=== PATIENT | male | born 1960 | race Caucasian/White ===

== ENCOUNTER → 2019-10-04 10:01 | Outpatient (CLI) | payer BC, SELFPAY ==
[2019-10-04 12:03] LABS: Alanine Aminotransferase 37 IU/L (<50); Albumin 4.4 g/dL (3.5-5.0); Albumin Globulin Ratio 1.4 (1.0-2.8); Alkaline Phosphatase 65 U/L (38-126); Aspartate Aminotransferase 33 IU/L (17-59); BUN Creatinine Ratio 13.6 (6-22); Blood Urea Nitrogen 15 mg/dL (9-20); Calcium 9.5 mg/dL (8.4-10.2); Carbon Dioxide 30 mmol/L (22-32); Chloride 102 mmol/L (98-107); Cholesterol 232 mg/dL (140-199); Estimated Glomerular Filt Rate > 60.0 mL/min (>60); Globulin 3.1 g/dL (1.7-4.1); Glucose 107 mg/dL (80-110); HDL Cholesterol 30 mg/dL (40-60); HEMOLYSIS < 15 (0-50); LDL Cholesterol Calculated 153 mg/dL (<100); Potassium 4.1 mmol/L (3.4-5.1); Sodium 140 mmol/L (137-145); Total Protein 7.5 g/dL (6.3-8.2); Triglycerides 244 mg/dL (35-150)
== END ==
PROVIDERS: PCP Family Medicine; Referring Provider Family Medicine; Visit Provider Family Medicine
DX: I10 Essential (primary) hypertension (principal)
CPT/HCPCS: 36415; 80053; 80061

== ENCOUNTER → 2020-06-12 12:33 | Outpatient (CLI) | payer BC, SELFPAY ==
[2020-06-12 13:25] LABS: Hemoglobin A1C% w Est Avg Glu 6.3 % (4.0-6.0)
[2020-06-12 14:21] LABS: BUN Creatinine Ratio 17.3 (6-22); Blood Urea Nitrogen 18 mg/dL (9-20); Calcium 9.3 mg/dL (8.4-10.2); Carbon Dioxide 32 mmol/L (22-32); Chloride 102 mmol/L (98-107); Estimated Glomerular Filt Rate > 60.0 mL/min (>60); Glucose 107 mg/dL (80-110); HEMOLYSIS < 15 (0-50); Potassium 4.2 mmol/L (3.4-5.1); Sodium 139 mmol/L (137-145)
== END ==
PROVIDERS: PCP Family Medicine; Referring Provider Family Medicine; Visit Provider Family Medicine
DX: E66.9 Obesity, unspecified (principal); E78.5 Hyperlipidemia, unspecified; I10 Essential (primary) hypertension; R73.03 Prediabetes
CPT/HCPCS: 36415; 80048; 83036

== ENCOUNTER → 2020-07-26 08:44 | Outpatient (CLI) | payer BC, SELFPAY ==
[2020-07-26 10:21] LABS: Glucose Tol Interpretation INTERPRETATION
[2020-07-26 11:26] LABS: Glucose 1 Hour 172 mg/dL (70-170)
[2020-07-26 11:26] LABS: Glucose Fasting 104 mg/dL (80-110)
[2020-07-26 12:35] LABS: Glucose 2 Hour 139 mg/dL (70-140)
== END ==
PROVIDERS: PCP Family Medicine; Referring Provider Family Medicine; Visit Provider Family Medicine
DX: E66.9 Obesity, unspecified (principal); R73.03 Prediabetes
CPT/HCPCS: 36415; 82951; 82952

== ENCOUNTER → 2020-11-23 07:54 | Outpatient (CLI) | payer BC, SELFPAY ==
[2020-11-23 09:40] LABS: Alanine Aminotransferase 34 IU/L (<50); Albumin 4.3 g/dL (3.5-5.0); Albumin Globulin Ratio 1.7 (1.0-2.8); Alkaline Phosphatase 56 U/L (38-126); Aspartate Aminotransferase 29 IU/L (17-59); BUN Creatinine Ratio 14.6 (6-22); Bilirubin Total 0.7 mg/dL (0.2-1.3); Blood Urea Nitrogen 14 mg/dL (9-20); Calcium 9.4 mg/dL (8.4-10.2); Carbon Dioxide 29 mmol/L (22-32); Chloride 102 mmol/L (98-107); Cholesterol 126 mg/dL (140-199); Estimated Glomerular Filt Rate > 60.0 mL/min (>60); Globulin 2.5 g/dL (1.7-4.1); Glucose 112 mg/dL (80-110); HDL Cholesterol 41 mg/dL (40-60); HEMOLYSIS < 15 (0-50); LDL Cholesterol Calculated 60 mg/dL (<100); Potassium 3.9 mmol/L (3.4-5.1); Sodium 138 mmol/L (137-145); Total Protein 6.8 g/dL (6.3-8.2); Triglycerides 126 mg/dL (35-150)
== END ==
PROVIDERS: PCP Family Medicine; Referring Provider Family Medicine; Visit Provider Family Medicine
DX: E78.2 Mixed hyperlipidemia (principal); I10 Essential (primary) hypertension
CPT/HCPCS: 36415; 80053; 80061

== ENCOUNTER → 2021-05-11 08:40 | Outpatient (CLI) | payer BC, SELFPAY ==
[2021-05-11 09:41] LABS: Hemoglobin A1C% w Est Avg Glu 6.2 % (4.0-6.0)
[2021-05-11 10:18] LABS: Alanine Aminotransferase 41 IU/L (<50); Albumin 4.2 g/dL (3.5-5.0); Albumin Globulin Ratio 1.8 (1.0-2.8); Alkaline Phosphatase 52 U/L (38-126); Aspartate Aminotransferase 30 IU/L (17-59); BUN Creatinine Ratio 14.6 (6-22); Bilirubin Total 0.3 mg/dL (0.2-1.3); Blood Urea Nitrogen 14 mg/dL (9-20); Calcium 9.3 mg/dL (8.4-10.2); Carbon Dioxide 31 mmol/L (22-32); Chloride 102 mmol/L (98-107); Cholesterol 116 mg/dL (140-199); Estimated Glomerular Filt Rate > 60.0 mL/min (>60); Globulin 2.4 g/dL (1.7-4.1); Glucose 110 mg/dL (80-110); HDL Cholesterol 46 mg/dL (40-60); HEMOLYSIS < 15 (0-50); LDL Cholesterol Calculated 53 mg/dL (<100); Potassium 4.2 mmol/L (3.4-5.1); Sodium 140 mmol/L (137-145); Total Protein 6.6 g/dL (6.3-8.2); Triglycerides 84 mg/dL (35-150)
== END ==
PROVIDERS: PCP Family Medicine; Referring Provider Family Medicine; Visit Provider Family Medicine
DX: E66.9 Obesity, unspecified (principal); E78.2 Mixed hyperlipidemia; I10 Essential (primary) hypertension; R73.03 Prediabetes
CPT/HCPCS: 36415; 80053; 80061; 83036

== ENCOUNTER → 2021-12-23 08:23 | Outpatient (CLI) | payer BC, SELFPAY ==
[2021-12-23 09:19] LABS: Hemoglobin A1C% w Est Avg Glu 6.7 % (4.0-6.0)
[2021-12-23 09:32] LABS: Alanine Aminotransferase 31 IU/L (<50); Albumin 4.4 g/dL (3.5-5.0); Albumin Globulin Ratio 1.6 (1.0-2.8); Alkaline Phosphatase 61 U/L (38-126); Aspartate Aminotransferase 36 IU/L (17-59); Bilirubin Total 0.5 mg/dL (0.2-1.3); Blood Urea Nitrogen 17 mg/dL (9-20); Calcium 8.8 mg/dL (8.4-10.2); Carbon Dioxide 30 mmol/L (22-32); Chloride 103 mmol/L (98-107); Estimated Glomerular Filt Rate > 60 mL/min (>60); Globulin 2.8 g/dL (1.7-4.1); Glucose 131 mg/dL (80-110); HEMOLYSIS < 15 (0-50); Potassium 3.7 mmol/L (3.4-5.1); Sodium 139 mmol/L (137-145); Total Protein 7.2 g/dL (6.3-8.2)
[2021-12-23 10:11] LABS: Microalbumi Creatinin Ratio Ur 19.5 ug/mg CR (<30); Microalbumin Urine Random 3.6 mg/dL (0-1.6)
== END ==
PROVIDERS: PCP Family Medicine; Referring Provider Family Medicine; Visit Provider Family Medicine
DX: E78.2 Mixed hyperlipidemia (principal); I10 Essential (primary) hypertension; R73.03 Prediabetes
CPT/HCPCS: 36415; 80053; 82043; 82570; 83036

== ENCOUNTER → 2021-12-29 08:49 | Outpatient (CLI) | payer BC, SELFPAY ==
[2021-12-29 10:56] LABS: Cholesterol 106 mg/dL (140-199); HDL Cholesterol 25 mg/dL (40-60); LDL Cholesterol Calculated 40 mg/dL (<100); Triglycerides 207 mg/dL (35-150)
[2021-12-29 11:25] LABS: Prostate Specific Antigen Scrn 0.495 ng/mL (0.1-4.0)
== END ==
PROVIDERS: PCP Family Medicine; Visit Provider Family Medicine
DX: E78.5 Hyperlipidemia, unspecified (principal); Z12.5 Encounter for screening for malignant neoplasm of prostate
CPT/HCPCS: 80061; G0103

== ENCOUNTER → 2022-05-27 10:02 | Outpatient (CLI) | payer BC, SELFPAY ==
[2022-05-27 11:50] LABS: Alanine Aminotransferase 40 IU/L (<50); Albumin 4.2 g/dL (3.5-5.0); Albumin Globulin Ratio 1.6 (1.0-2.8); Alkaline Phosphatase 52 U/L (38-126); Aspartate Aminotransferase 29 IU/L (17-59); Blood Urea Nitrogen 12 mg/dL (9-20); Carbon Dioxide 30 mmol/L (22-32); Chloride 101 mmol/L (98-107); Cholesterol 117 mg/dL (140-199); Estimated Glomerular Filt Rate > 60 mL/min (>60); Globulin 2.6 g/dL (1.7-4.1); Glucose 111 mg/dL (80-110); HDL Cholesterol 35 mg/dL (40-60); HEMOLYSIS < 15 (0-50); LDL Cholesterol Calculated 50 mg/dL (<100); Potassium 4.2 mmol/L (3.4-5.1); Sodium 141 mmol/L (137-145); Total Protein 6.8 g/dL (6.3-8.2); Triglycerides 162 mg/dL (35-150)
[2022-05-27 12:07] LABS: Hemoglobin A1C% w Est Avg Glu 6.3 % (4.0-6.0)
[2022-05-27 13:56] LABS: Creatinine Urine Random 59.2 mg/dL
[2022-05-27 14:00] LABS: Microalbumi Creatinin Ratio Ur 11.8 ug/mg CR (<30); Microalbumin Urine Random 0.7 mg/dL (0-1.6)
== END ==
PROVIDERS: PCP Family Medicine; Referring Provider Family Medicine; Visit Provider Family Medicine
DX: E11.9 Type 2 diabetes mellitus without complications (principal); E78.2 Mixed hyperlipidemia; Z12.5 Encounter for screening for malignant neoplasm of prostate
CPT/HCPCS: 36415; 80053; 80061; 82043; 82570; 83036; G0103

== ENCOUNTER 2022-11-07 06:44 | Day surgery (SDC) | payer BC, SELFPAY ==
[2022-11-07 07:18] VITALS: BMI 32.6
[2022-11-07 07:29] VITALS: BP 125/77; PULSE 68; RESP 16; TEMP 36.5; O2SAT 97
[2022-11-07] MEDS: LACTATED RINGERS 1,000 ML 150 ML IV (07:29)
--- NOTE | 2022-11-07 07:35 | P.HP_ITS ---
History of Present Illness History of Present Illness Date Patient Seen: 11/07/22 Time Patient Seen: 07:35 Chief complaint: Colonoscopy Narrative: First colonoscopy for colon cancer screening. No family history or symptoms concerning for colon cancer. [facility] Medical History Hyperlipidemia Hypertension Obesity (BMI 30-39.9) Tinnitus Surgical History [employer] teeth removed Family History Father History of heart disease Mother Cancer Leukemia Brother Cancer Leukemia Brother Hypertension Brother Hypertension Social History household members: spouse Smoking Status: Former smoker Tobacco: How many years used: 20 alcohol intake: current substance use type: does not use Meds Home Medications and Allergies Home Medications Medication Instructions Recorded Confirmed Type amlodipine 5 mg tablet 5 mg PO DAILY #90 tabs 04/11/22 11/07/22 Rx hydrochlorothiazide 12.5 mg tablet 12.5 mg PO DAILY #90 tabs 04/11/22 11/07/22 Rx rosuvastatin 20 mg tablet 20 mg PO DAILY #90 tabs 04/11/22 11/07/22 Rx metformin 1,000 mg tablet 1,000 mg PO BID #180 tabs 09/05/22 11/07/22 Rx Allergies Allergy/AdvReac Type Severity Reaction Status Date / Time No Known Drug Allergies Allergy Verified 11/07/22 07:17 Review of Systems Review of Systems ROS: Yes All systems reviewed with the patient and are negative except as otherwise documented Exam Vital Signs (past 8 hours): - 11/07/22 07:29 Temperature 97.7 F Pulse Rate 68 Respiratory Rate 16 Blood Pressure 125/77 Pulse Oximetry 97 Oxygen Delivery Method Room Air Oxygen Delivery Method Room Air Const General: cooperative and healthy appearing Nutritional Appearance: well nourished HENMT Head: normal to inspection, normocephalic and atraumatic Eyes Sclera: sclerae normal Neck Neck: trachea midline Chest Chest: normal inspection of the chest Resp Effort & Inspection: normal respiratory effort and able to speak in complete sentences Cardio Rate: regular rate Rhythm: regular rhythm GI Palpation: soft Skin General: elasticity normal Neuro General: patient alert, patient awake and patient oriented x3 Extrem General: normal to inspection Psych Appearance: grossly normal Mental Status: mental status grossly normal Affect: normal affect Judgment: judgment good Assessment & Plan Assessment & Plan narrative: colon cancer screening using colonoscopy and MAC COVID-19 COVID-19 status: Negative Time Spent With Patient Time with patient: less than 30 minutes
--- NOTE | 2022-11-07 08:01 | PM.OP.COLON ---
Operative Date/Time/Diagnoses Date of procedure: 11/07/22 Time of procedure: 08:01 Pre-op diagnosis: Colon cancer screening Post-op diagnosis: same Procedure & Clinicians Study performed: Colonoscopy using MAC Same procedure as scheduled: Yes Indications: Colon cancer screening Surgeon: Hanny Renteria Procedure Notes Procedure in detail: Preop diagnosis: Colon cancer screening Postop diagnosis: Same Operative procedure: Colonoscopy using MAC Surgeon: Pavithra Renteria MD Findings: Normal colon, no polyps, scant small diverticuli in the descending colon Procedure: Patient placed in lateral position. Rectal exam performed showing normal tone no masses. Does have a hemorrhoidal tag on the exterior. Scope was inserted into the rectum and advanced to ileocecal valve with minimal difficulty. Insufflation and extraction of the scope and the above findings. Retroflex was included in the rectum. Impression: Normal colonoscopy. No polyps, small scant diverticulosis of the descending colon Plan: Repeat colonoscopy in 10 years unless otherwise indicated by change in clinical condition or family history Specimen(s): none sent Complications: none Post-procedure Recommendations: Colonoscopy in 10 years Follow up: as needed Disposition: PACU
[2022-11-07 08:04] VITALS: BP 123/76; PULSE 60; RESP 24; TEMP 36.2; O2SAT 92
[2022-11-07 08:09] VITALS: BP 136/72; PULSE 62; RESP 22; O2SAT 93
[2022-11-07 08:13] VITALS: BP 136/72; PULSE 62; RESP 14; O2SAT 95
== END 2022-11-07 08:34 | disposition home or self-care (01) ==
PROVIDERS: PCP Family Medicine; Referring Provider Surgery; Visit Provider Surgery
PROC: 0DJD8ZZ Inspection of Lower Intestinal Tract, Via Natural or Artificial Opening Endoscopic (ICD-10-PCS; CPT 45378; principal; 2022-11-07 07:45)
DX: Z12.11 Encounter for screening for malignant neoplasm of colon (principal); K57.30 Diverticulosis of large intestine without perforation or abscess without bleeding
CPT/HCPCS: 45378; J2704

== ENCOUNTER → 2023-01-10 07:39 | Outpatient (CLI) | payer BC, SELFPAY ==
[2023-01-10 08:48] LABS: Alanine Aminotransferase 35 IU/L (<50); Albumin 4.3 g/dL (3.5-5.0); Albumin Globulin Ratio 1.8 (1.0-2.8); Alkaline Phosphatase 46 U/L (38-126); Aspartate Aminotransferase 27 IU/L (17-59); BUN Creatinine Ratio 14.1 (6-22); Bilirubin Total 0.7 mg/dL (0.2-1.3); Blood Urea Nitrogen 14 mg/dL (9-20); Calcium 9.2 mg/dL (8.4-10.2); Carbon Dioxide 29 mmol/L (22-32); Chloride 103 mmol/L (98-107); Cholesterol 101 mg/dL (140-199); Estimated Glomerular Filt Rate > 60 mL/min (>60); Globulin 2.4 g/dL (1.7-4.1); Glucose 113 mg/dL (80-110); HDL Cholesterol 40 mg/dL (40-60); HEMOLYSIS < 15 (0-50); LDL Cholesterol Calculated 42 mg/dL (<100); Potassium 3.9 mmol/L (3.4-5.1); Sodium 138 mmol/L (137-145); Total Protein 6.7 g/dL (6.3-8.2); Triglycerides 95 mg/dL (35-150)
[2023-01-10 09:16] LABS: Prostate Specific Antigen Scrn 0.893 ng/mL (0.1-4.0)
[2023-01-10 12:32] LABS: Creatinine Urine Random 78.8 mg/dL; Protein (Total) Urine Random 7 mg/dL (0-12); Protein Creatinine Ratio Urine 0.08 GRAM/24H
[2023-01-11 04:26] LABS: x Labcorp Estim. Avg Glu (eAG) 134 mg/dL (.); x Labcorp Hemoglobin A1c 6.3 % (4.8-5.6)
== END ==
PROVIDERS: PCP Family Medicine; Referring Provider Family Medicine; Visit Provider Family Medicine
DX: E11.9 Type 2 diabetes mellitus without complications (principal); E78.2 Mixed hyperlipidemia; I10 Essential (primary) hypertension; Z12.5 Encounter for screening for malignant neoplasm of prostate
CPT/HCPCS: 36415; 80053; 80061; 82570; 83036; 84156; G0103

== ENCOUNTER → 2023-07-18 08:33 | Outpatient (CLI) | payer BC, SELFPAY ==
[2023-07-18 09:05] LABS: Hemoglobin A1C% w Est Avg Glu 6.2 % (4.0-6.0)
[2023-07-18 09:16] LABS: BUN Creatinine Ratio 15.2 (6-22); Blood Urea Nitrogen 14 mg/dL (9-20); Calcium 9.7 mg/dL (8.4-10.2); Carbon Dioxide 30 mmol/L (22-32); Chloride 101 mmol/L (98-107); Estimated Glomerular Filt Rate > 60 mL/min (>60); Glucose 109 mg/dL (80-110); HEMOLYSIS < 15 (0-50); Potassium 4.3 mmol/L (3.4-5.1); Sodium 138 mmol/L (137-145)
== END ==
PROVIDERS: PCP Family Medicine; Referring Provider Family Medicine; Visit Provider Family Medicine
DX: E11.9 Type 2 diabetes mellitus without complications (principal); E66.9 Obesity, unspecified; I10 Essential (primary) hypertension
CPT/HCPCS: 36415; 80048; 83036

== ENCOUNTER → 2024-01-14 09:04 | Outpatient (CLI) | payer BC, SELFPAY ==
[2024-01-14 10:40] LABS: Hemoglobin A1C% w Est Avg Glu 6.1 % (4.0-6.0)
[2024-01-14 10:54] LABS: BUN Creatinine Ratio 14.2 (6-22); Blood Urea Nitrogen 15 mg/dL (9-20); Carbon Dioxide 30 mmol/L (22-32); Chloride 104 mmol/L (98-107); Cholesterol 110 mg/dL (140-199); Estimated Glomerular Filt Rate > 60 mL/min (>60); Glucose 119 mg/dL (80-110); HDL Cholesterol 42 mg/dL (40-60); HEMOLYSIS < 15 (0-50); LDL Cholesterol Calculated 46 mg/dL (<100); Potassium 4.5 mmol/L (3.4-5.1); Sodium 139 mmol/L (137-145); Triglycerides 111 mg/dL (35-150)
[2024-01-14 11:03] LABS: Creatinine Urine Random 101.68 mg/dL
[2024-01-14 11:09] LABS: Microalbumin Urine Random 2.2 mg/dL (0-1.6)
[2024-01-14 11:24] LABS: Prostate Specific Antigen Scrn 1.24 ng/mL (0.1-4.0)
== END ==
PROVIDERS: PCP Family Medicine; Referring Provider Family Medicine; Visit Provider Family Medicine
DX: Z12.5 Encounter for screening for malignant neoplasm of prostate (principal); E11.9 Type 2 diabetes mellitus without complications; I10 Essential (primary) hypertension; E78.5 Hyperlipidemia, unspecified
CPT/HCPCS: 36415; 80048; 80061; 82043; 82570; 83036; 86140; G0103

== ENCOUNTER → 2024-07-16 07:13 | Outpatient (CLI) | payer BC, SELFPAY ==
[2024-07-16 08:28] LABS: BUN Creatinine Ratio 13.2 (6-22); Blood Urea Nitrogen 14 mg/dL (9-20); Calcium 9.5 mg/dL (8.4-10.2); Carbon Dioxide 29 mmol/L (22-32); Chloride 103 mmol/L (98-107); Cholesterol 136 mg/dL (140-199); Estimated Glomerular Filt Rate > 60 mL/min (>60); Glucose 104 mg/dL (80-110); HDL Cholesterol 49 mg/dL (40-60); HEMOLYSIS < 15 (0-50); LDL Cholesterol Calculated 66 mg/dL (<100); Potassium 4.2 mmol/L (3.4-5.1); Sodium 138 mmol/L (137-145); Triglycerides 103 mg/dL (35-150)
[2024-07-16 15:25] LABS: High Sensitivity CRP - Cardiac 0.3 mg/L (1.0-3.0)
== END ==
PROVIDERS: PCP Family Medicine; Referring Provider Family Medicine; Visit Provider Family Medicine
DX: E11.39 Type 2 diabetes mellitus with other diabetic ophthalmic complication (principal); I10 Essential (primary) hypertension; E78.5 Hyperlipidemia, unspecified
CPT/HCPCS: 36415; 80048; 80061; 86140

== ENCOUNTER → 2024-12-30 07:56 | Outpatient (CLI) | payer BC, SELFPAY ==
[2024-12-30 08:27] LABS: Hemoglobin A1C% w Est Avg Glu 5.9 % (4.0-6.0)
[2024-12-30 09:10] LABS: Prostate Specific Antigen 0.836 ng/mL (0.10-4.00)
[2024-12-30 09:18] LABS: Creatinine Urine Random 125.41 mg/dL; Protein (Total) Urine Random 5 mg/dL (0-12); Protein Creatinine Ratio Urine 0.03 GRAM/24H
== END ==
PROVIDERS: PCP Family Medicine; Referring Provider Family Medicine; Visit Provider Family Medicine
DX: E11.39 Type 2 diabetes mellitus with other diabetic ophthalmic complication (principal); I10 Essential (primary) hypertension; Z12.5 Encounter for screening for malignant neoplasm of prostate; E78.5 Hyperlipidemia, unspecified
CPT/HCPCS: 36415; 82570; 83036; 84153; 84156